=== PATIENT | male | born 1970 | race Caucasian/White ===

== ENCOUNTER 2019-01-15 08:36 | Emergency (ER) | payer MEDICAID, OTHER ==
[2019-01-15] MEDS ORDERED: MIDAZOLAM HCL 2MG/2ML VIAL IV ONE ×2 (08:52→09:13)
--- NOTE | 2019-01-15 09:04 | Emergency Department Record ---
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 patient also has chronic hip pain right and on [place] and trying to wean off the norco. Today [facility] and his knee was duct taped in that position and his hamstring was spasming. Initially I thought it was dislocated knee cap but xrays revealed knee cap in the right position. Meds were used to relax his hamstring and he was able to extend his leg and a knee immobilier was applied - Related Data Home Medications Medication Instructions Recorded Confirmed Last Taken Ibuprofen [Motrin] 800 mg PO Q6HR PRN 01/15/19 01/15/19 01/14/19 Previous Rx's Medication Instructions Recorded Naproxen [Naprosyn] 500 mg PO Q12H #30 tab. 01/15/19 Allergies Allergy/AdvReac Type Severity Reaction Status Date / Time No Known Drug Allergies Allergy Verified 01/15/19 08:41 Review of Systems Reviewed: No additional complaints except as noted below Constitutional: Reports: As per HPI. Denies: Chills, Fever, Malaise, Night sweats, Weakness, Weight change Eyes: Reports: As per HPI. Denies: Eye discharge, Eye pain, Photophobia, Vision change ENT: Reports: As per HPI. Denies: Congestion, Dental pain, Ear pain, Epistaxis , Hearing loss, Throat pain Respiratory: Reports: As per HPI. Denies: Cough, Dyspnea, Hemoptysis, Stridor, Wheezes Cardiovascular: Reports: As per HPI. Denies: Arrhythmia, Chest pain, Dyspnea on exertion, Edema, Murmurs, Orthopnea, Palpitations, Paroxysmal nocturnal dyspnea, Rheumatic Fever, Syncope Endocrine: Reports: As per HPI. Denies: Fatigue, Heat or cold intolerance, Polydipsia, Polyuria Gastrointestinal: Reports: As per HPI. Denies: Abdominal pain, Constipation, Diarrhea, Hematemesis, Hematochezia, Melena, Nausea, Vomiting Genitourinary: Reports: As per HPI. Denies: Dysuria, Frequency, Hematuria, Incontinence, Retention, Testicular pain, Testicular mass, Urgency Musculoskeletal: Reports: As per HPI, Joint swelling, Other (right knee pain). Denies: Arthralgia, Back pain, Gout, Myalgia, Neck pain Skin: Reports: As per HPI. Denies: Bruising, Change in color, Change in hair/ nails, Lesions, Pruritus, Rash Neurological: Reports: As per HPI. Denies: Abnormal gait, Confusion, Headache, Numbness, Paresthesias, Seizure, Tingling, Tremors, Vertigo, Weakness Psychiatric: Reports: As per HPI. Denies: Anxiety, Auditory hallucinations, Depression, Homicidal thoughts, Suicidal thoughts, Visual hallucinations Hematological/Lymphatic: Reports: As per HPI. Denies: Anemia, Blood Clots, Easy bleeding, Easy bruising, Swollen glands Past Medical History - SOCIAL HISTORY Smoking Status: Never smoker - RESPIRATORY Hx Respiratory Disorders: No - CARDIOVASCULAR Hx Cardio Disorders: No - NEURO Hx Neuro Disorders: No - GI Hx GI Disorders: No - Hx Genitourinary Disorders: No - ENDOCRINE Hx Endocrine Disorders: No - MUSCULOSKELETAL Hx Musculoskeletal Disorders: Yes - PSYCH Hx Psych Problems: No - HEMATOLOGY/ONCOLOGY Hx Hematology/Oncology Disorders: No Family Medical History Hx Cancer: Grandparents Hx Diabetes: Grandparents Hx Heart Disease: Father, Grandparents Physical Exam - General General Appearance: Alert, Oriented x3, Cooperative, Severe distress - Head Head exam: Normal inspection - Eye Eye exam: Normal appearance, PERRL Pupils: Normal accommodation - ENT ENT exam: Normal exam, Mucous membranes moist, Normal external ear exam, Normal orophraynx, TM's normal bilaterally Ear exam: Normal external inspection. negative: External canal tenderness Nasal Exam: Normal inspection. negative: Discharge, Sinus tenderness Mouth exam: Normal external inspection, Tongue normal Teeth exam: Normal inspection. negative: Dental caries Throat exam: Normal inspection. negative: Tonsillar erythema, Tonsillar exudate - Neck Neck exam: Normal inspection, Full ROM. negative: Tenderness - Respiratory Respiratory exam: Normal lung sounds bilaterally. negative: Respiratory distress - Cardiovascular Cardiovascular Exam: Regular rate, Normal rhythm, Normal heart sounds - GI/Abdominal GI/Abdominal exam: Soft, Normal bowel sounds. negative: Tenderness - Rectal Rectal exam: Deferred - exam: Deferred - Extremities Extremities exam: Normal capillary refill, Tenderness (knee and hamstring pain , once the knee extended he was able to straight leg raise his leg no patellar rupture) - Back Back exam: Reports: Normal inspection, Full ROM. Denies: Muscle spasm, Rash noted, Tenderness - Neurological Neurological exam: Alert, Normal gait, Oriented X3, Reflexes normal - Psychiatric Psychiatric exam: Normal affect, Normal mood - Skin Skin exam: Dry, Intact, Normal color, Warm Course - Reevaluation(s) Reevaluation #1: patient talking and oriented times three and moving appropriately. Patient not lethargic 01/15/19 10:07 Reevaluation #2: discussed case with [place] and they will work him in today 01/15/19 10:18 Medical Decision Making - Data Complexity MDM Data: X-Ray Ordered and/or Reviewed (first xrays negative for fracture but limited by severe flexion ,) Disposition Clinical Impression: Strain of knee and leg, right Qualifiers: Encounter type: initial encounter Qualified Code(s): S86.911A - Strain of unspecified muscle(s) and tendon(s) at lower leg level, right leg, initial encounter Disposition: Home, Self-Care Condition: (1) Good Instructions: Swollen Knee Joint (ED) Additional Instructions: follow up with Dr Shaw as scheduled stop motrin while taking the naprosyn Prescriptions: Naproxen [Naprosyn] 500 mg PO Q12H #30 tab.dr Forms: Patient Portal Access Time of Disposition: 10:05 Quality - Quality Measures Quality Measures: N/A - Blood Pressure Screening Does Patient Have Any of the Following: No Blood Pressure Classification: Pre-Hypertensive BP Reading Systolic Measurement: 126 Diastolic Measurement: 84 Screening for High Blood Pressure: < Pre-Hypertensive BP, F/U Documented > [ [id number]] Pre-Hypertensive Follow-up Interventions: Referral to alternative/primary care provider.
[2019-01-15] MEDS ORDERED: HYDROMORPHONE HCL 2 MG/ML VIAL IVP ONE (09:12)
--- NOTE | 2019-01-17 08:34 | RADIOLOGY REPORT ---
EXAM: RIGHT KNEE HISTORY: KNEE PAIN AND SWELLING, UNABLE TO EXTEND THE KNEE. REMOTE HISTORY OF MENISCAL REPAIR. TECHNIQUE: Two views of the right knee were obtained. Comparison: None. FINDINGS: Significant flexion of the knee markedly limits evaluation. No definite fracture is visualized. No evidence of dislocation. Likely underlying knee joint arthrosis, chondrocalcinosis or calcified bodies in the anterior and posterior tibiofemoral region. IMPRESSION: 1. MARKEDLY LIMITED EXAM DUE TO SIGNIFICANT FLEXION OF THE KNEE. 2. NO DEFINITE ACUTE OSSEOUS FINDINGS. 3. DEGENERATIVE CHANGES OF THE KNEE. JOB [facility]BER: [id number] [facility]
--- NOTE | 2019-01-17 08:37 | RADIOLOGY REPORT ---
EXAM: RIGHT KNEE HISTORY: RIGHT KNEE PAIN, LIMITED RANGE OF MOTION. TECHNIQUE: Two views of the right knee were obtained. Comparison: Right knee radiographs 01/15/19. FINDINGS: Improved extension of the knee from earlier study. No acute fracture is seen. No dislocation. No significant knee joint effusion. Tricompartmental osteoarthrosis with small marginal osteophytes. Chondrocalcinosis is noted. IMPRESSION: 1. INCREASED EXTENSION OF THE KNEE FROM PRIOR STUDY. 2. NO ACUTE OSSEOUS FINDINGS. 3. TRICOMPARTMENTAL OSTEOARTHROSIS WITH CHONDROCALCINOSIS. J[facility]BER: [id number] [facility]
== END 2019-01-15 10:45 | disposition home or self-care (01) ==
LOC: ER 08:36
DX: S86.911A Strain of unspecified muscle(s) and tendon(s) at lower leg level, right leg, initial encounter (principal); X50.1XXA Overexertion from prolonged static or awkward postures, initial encounter; Y92.003 Bedroom of unspecified non-institutional (private) residence as the place of occurrence of the external cause
CPT/HCPCS: 29505; 99284 ×2; 96374; 96375; 73560; 73562; J1170

== ENCOUNTER 2019-02-12 06:24 | Day surgery (SDC) | payer MEDICAID ==
[~2019-02-12 06:24] MED LIST: ACETAMINOPHEN 1,000 MG/100 ML BTL IVPB ONE; RINGERS SOLUTION,LACTATED 1,000 ML IV ONE
[2019-02-12] MEDS ORDERED: ONDANSETRON HCL IV 4 MG/2 ML VIAL IVP ONE (06:25)
[2019-02-12] MEDS ORDERED: PROPOFOL 10 MG/ML VIAL IV ONE (06:25)
[2019-02-12] MEDS ORDERED: GLYCOPYRROLATE 0.2 MG/ML ML IV ONE (06:25)
[2019-02-12] MEDS ORDERED: DEXAMETHASONE 4 MG/ML 1ML VIAL IVP ONE (06:25)
[2019-02-12] MEDS ORDERED: MIDAZOLAM HCL 2MG/2ML VIAL IV ONE (06:25)
[2019-02-12] MEDS ORDERED: LIDOCAINE 2% MDV (20MG/ML) 20ML VIAL IV ONE (06:25)
[2019-02-12] MEDS ORDERED: FENTANYL PF 100MCG/2ML VIAL IV ONE (06:25)
[2019-02-12] MEDS ORDERED: SEVOFLURANE 250 ML INH ONE (06:25)
[2019-02-12] MEDS ORDERED: RINGERS SOLUTION,LACTATED 1,000 ML IV ONE (06:45)
[2019-02-12] MEDS ORDERED: BUPIVACAINE 0.25% W/EPI MPF 30ML VIAL SQ ONE (08:30)
[2019-02-12] MEDS ORDERED: RINGERS SOLUTION,LACTATED 150 ML IV ONE (08:57)
[2019-02-12] MEDS ORDERED: HYDROCODONE/APAP 5/325MG TABLET PO ONE (09:39)
--- NOTE | 2019-02-13 09:11 | Operative Note ---
DATE OF SERVICE: 02/12/2019. DATE OF SURGERY: 02/12/2019. PREOPERATIVE DIAGNOSES: 1. Bucket handle tear, lateral meniscus of the right knee. 2. Chondrocalcinosis, right knee. POSTOPERATIVE DIAGNOSES: 1. Displaced bucket handle tear of the lateral meniscus, right knee. 2. 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 3. Chondrocalcinosis, right knee. OPERATION: Arthroscopic partial lateral meniscectomy, right knee. SURGEON: Silverio Shaw DO. REFERRING PHYSICIAN: Cleveland Elliott MD. PROCEDURE: This 48-year-old male was taken to the operating room and placed in the supine position on the operating room table. A general anesthetic was administered. The right lower extremity was elevated, exsanguinated, and a tourniquet inflated to 300 mmHg. Arthroscopic knee [place]ough[place] applied. Right knee prepped with Hibiclens and draped in the usual sterile fashion. An inferolateral portal was established with a 4 mm arthroscope, and initial evaluation of the joint demonstrated normal appearance of the suprapatellar pouch. He did have minimal chondromalacia of the patellofemoral joint, which was not further disturbed. The medial gutter was examined and found to be normal. The medial compartment demonstrated normal articular cartilage. He had normal appearance of the medial meniscus, which was probed through an anteromedial portal. No evidence of disruption of the medial meniscus was present, but some chondrocalcinosis was deposited on the medial meniscus, but it was not severe. The intercondylar notch appeared normal. The lateral compartment was entered, and a displaced bucket handle tear of the lateral meniscus was present. Utilizing the basket forceps and rotating shaver, we detached it posteriorly, and the entire lateral meniscus involving the popliteal hiatus was displaced anteriorly. Once it was detached posteriorly, we used the rotating shaver and basket forceps to resect the remainder of the torn meniscus. Utilizing a shaver, we debrided back to stable rim, which was at about the 7-8 o'clock position, and probing confirmed that that segment of the meniscus was stable. The articular cartilage of the lateral femoral condyle demonstrated some mild fraying. It was not severe. The joint was copiously irrigated, and all areas were reexamined, and no additional findings were present. The joint was suctioned. The instruments were removed. The portals were infiltrated with 0.25% Marcaine with epinephrine, and sterile dressings were applied after the wounds were sutured with 4-0 nylon suture. He was then taken to the recovery room in satisfactory condition. GROSS PATHOLOGY: Patient demonstrated displaced bucket handle tear of the lateral meniscus with mild chondromalacia. Chondrocalcinosis was noted throughout the knee, but it also was not severe. ANIYAD
== END 2019-02-12 09:58 | disposition home or self-care (01) ==
LOC: SUR 06:24
PROVIDERS: ATTEND Orthopaedic Surgery
DX: S83.251A Bucket-handle tear of lateral meniscus, current injury, right knee, initial encounter (principal); M11.261 Other chondrocalcinosis, right knee; M22.41 Chondromalacia patellae, right knee
CPT/HCPCS: J2405; J7120